=== PATIENT | female | born 1960 | race Caucasian/White ===

== ENCOUNTER → 2020-12-03 | Outpatient (CLI) | payer OTHER ==
[2020-12-03 11:37] LABS: HEMOGLOBIN 13.4 gm/dl (12.3-15.3); RED BLOOD COUNT 4.61 M/UL (4.00-5.10)
[2020-12-03 12:07] LABS: BUN/CREATININE RATIO 32 (0-10)
[2020-12-04 09:14] LABS: VITAMIN D, 25-HYDROXY 33.7 ng/mL (30.0-100.0)
[2020-12-04 10:15] LABS: THYROXINE (T4) 7.7 ug/dL (4.5-12.0)
== END ==
LOC: LAB 10:11
PROVIDERS: Nurse Practitioner
DX: E11.9 Type 2 diabetes mellitus without complications (principal); E78.5 Hyperlipidemia, unspecified; E55.9 Vitamin D deficiency, unspecified
CPT/HCPCS: 36415; 80053; 80061; 81001; 83036; 84436; 84443; 84480; 85025

== ENCOUNTER → 2021-02-05 | Outpatient (CLI) | payer OTHER | LOC: KOH-I 11:44 | DX: M77.42 Metatarsalgia, left foot (principal) | CPT/HCPCS: 73620 ==

== ENCOUNTER → 2021-06-17 | Outpatient (CLI) | payer MEDICARE, OTHER ==
[2021-06-17 10:16] LABS: HEMOGLOBIN 14.2 gm/dl (12.3-15.3); RED BLOOD COUNT 4.89 M/UL (4.00-5.10); WHITE BLOOD COUNT 5.9 K/UL (4.5-11.0)
[2021-06-17 10:41] LABS: BUN/CREATININE RATIO 21 (0-10)
[2021-06-18 09:14] LABS: THYROXINE (T4) 7.6 ug/dL (4.5-12.0); VITAMIN D, 25-HYDROXY 28.4 ng/mL (30.0-100.0)
== END ==
LOC: LAB 09:33
PROVIDERS: Nurse Practitioner
DX: E11.9 Type 2 diabetes mellitus without complications (principal); E78.5 Hyperlipidemia, unspecified; F98.5 Adult onset fluency disorder; E55.9 Vitamin D deficiency, unspecified; R26.89 Other abnormalities of gait and mobility; R53.83 Other fatigue
CPT/HCPCS: 36415; 80053; 80061; 81001; 83036; 84436; 84443; 84480; 85025

== ENCOUNTER → 2022-02-12 | Outpatient (CLI) | payer MEDICARE, OTHER ==
[2022-02-12 12:09] LABS: HEMOGLOBIN 14.5 gm/dl (12.3-15.3); RED BLOOD COUNT 4.94 M/UL (4.00-5.10); WHITE BLOOD COUNT 7.2 K/UL (4.5-11.0)
[2022-02-12 12:32] LABS: BUN/CREATININE RATIO 25 (0-10)
[2022-02-13 07:11] LABS: VITAMIN D, 25-HYDROXY 28.6 ng/mL (30.0-100.0)
[2022-02-13 08:14] LABS: THYROXINE (T4) 9.4 ug/dL (4.5-12.0)
== END ==
LOC: LAB 11:19
PROVIDERS: Nurse Practitioner
DX: E11.9 Type 2 diabetes mellitus without complications (principal); E78.5 Hyperlipidemia, unspecified; F98.5 Adult onset fluency disorder; E55.9 Vitamin D deficiency, unspecified; R26.89 Other abnormalities of gait and mobility; R53.83 Other fatigue
CPT/HCPCS: 36415; 80053; 80061; 81001; 83036; 84436; 84443; 84480; 85025